=== PATIENT | female | born 1965 | race Caucasian/White ===

== ENCOUNTER → 2021-09-08 | Outpatient (CLI) | payer OTHER ==
[~2021-09-08] MED LIST: ALIVE WOMEN S PO; ANASTROZOLE1 MG PO; COMPAZINE10 MG PO; FLUTICASONE SPRAY; HYDROCODONE-AC1 EACH PO; KEFLEX PO; LISINOPRIL10 MG PO; SINGULAIR10 MG PO; TOPROL XL100 MG PO
[2021-09-08 11:52] LABS: BUN/CREATININE RATIO 13 (0-10)
== END ==
LOC: OPSV2 09:57
PROVIDERS: Anesthesiology
DX: Z01.812 Encounter for preprocedural laboratory examination (principal)
CPT/HCPCS: 36415; 80048

== ENCOUNTER → 2021-09-11 | Day surgery (SDC) | payer OTHER | END | disposition home or self-care (01) | LOC: OR 06:29 | DX: J34.2 Deviated nasal septum (principal); J34.3 Hypertrophy of nasal turbinates; R09.81 Nasal congestion; Z79.52 Long term (current) use of systemic steroids; Z79.899 Other long term (current) drug therapy; Z20.822 Contact with and (suspected) exposure to COVID-19 | CPT/HCPCS: C1726; J0171; J0690; J0780; J1100; J1170; J2250; J2370; J2405; J2704; J2710; J3010; J7030; J7120 ==